=== PATIENT | male | born 1950 | race Caucasian/White ===

== ENCOUNTER → 2016-10-26 | Outpatient (CLI) | payer OTHER ==
[~2016-10-26] MED LIST: AMLO10TA2 PO; CLOT10TR MM; CYCL5TAB PO; GADOBUTROL 10 MMOL/10 ML VIAL IV ONE; HYDR-2666 PO; KETO15CR TP; LEVO25TA4 PO; LORA10TA3 PO; MELA3TAB PO; METF500T4 PO; MIRT30TA3 PO; OMEP20CA9 PO; QUET300T5 PO; SIMV40TA3 PO; ZOLP5TAB4 PO
--- NOTE | 2016-10-27 10:21 | KCIC ---
PROCEDURE MRI brain without and with contrast. HISTORY Left hearing loss for years, failed hearing test TECHNIQUE Multiplanar, multi sequential pre and post contrast MR imaging was performed of the brain, dedicated images of the internal auditory canals also obtained. Contrast: 10 cc Gadavist COMPARISON None FINDINGS Ventricles, sulci, cisterns are within normal limits in size and configuration. There is no intra-axial mass effect, midline shift, extra-axial fluid collection, or nodular parenchymal or leptomeningeal enhancement. There is no nodular enhancement of the cerebellopontine angles or the internal auditory canals. There is no restricted diffusion suggestive of a recent infarct or cytotoxic edema. There are several scattered tiny foci of nonenhancing T2 and FLAIR hyperintense signal abnormality of the supratentorial white matter bilaterally greatest of the left frontal lobe and right periatrial white matter, to lesser degree of left parietal and right frontal lobes. There is no significant hemosiderin deposition of the brain parenchyma. There is preservation of the major arterial intracranial flow voids at the skull base. There is mild ethmoid air cell, frontal sinus, sphenoid sinus, and left greater right maxillary sinus mucosal thickening. There is large left maxillary sinus mucous retention cyst on the order of 2.2 cm. Mastoid air cells are overall aerated, mild thickening. IMPRESSION 1. There is no abnormal intracranial enhancement, no nodular enhancement of the internal auditory canals or cerebellopontine angles. 2. There are several scattered tiny foci of nonspecific, nonenhancing T2 and FLAIR hyperintense signal abnormality of the supratentorial white matter bilaterally. Findings are most commonly due to chronic microvascular ischemic disease in patient this age. 3. There is mild paranasal sinus mucosal thickening, left maxillary sinus mucous retention cyst. Electronically signed by: Isai Malcolm MD (Oct 27, 2016 10:19:41)
== END | disposition home or self-care (01) ==
LOC: KCIC MRI 09:44
DX: H91.92 Unspecified hearing loss, left ear (principal)
CPT/HCPCS: 82565; A9585; 70553